=== PATIENT | female | born 1955 | race Caucasian/White ===

== ENCOUNTER 2017-03-28 07:29 | Day surgery (SDC) | payer BC ==
[2017-03-22 09:09] LABS: BASOPHILS 1.1 %; BASOPHILS ABSOLUTE 0.07 10/3/uL (0.0-0.16); EOSINOPHILS 5.8 %; EOSINOPHILS ABSOLUTE 0.38 10/3/uL (0.0-0.53); IMMATURE GRANULOCYTES 0.2 %; IMMATURE GRANULOCYTES ABSOLUTE 0.01 10/3/uL (0.0-0.11); LYMPHOCYTES 42.2 %; LYMPHOCYTES ABSOLUTE 2.78 10/3/uL (0.67-4.30); MEAN CORPUS HGB CONC 32.9 g/dL (32.0-36.0); MEAN CORPUSCULAR HEMOGLOB 29.9 pg (26.0-34.0); MONOCYTES 11.9 %; MONOCYTES ABSOLUTE 0.78 10/3/uL (0.21-1.20); NEUTROPHILS 38.8 %; NEUTROPHILS ABSOLUTE 2.56 10/3/uL (2.02-8.40); PLATELET COUNT 333 10/3/uL (150-400); WHITE BLOOD CELLS 6.6 10/3/uL (4.5-10.5)
[2017-03-22 09:21] LABS: BUN (BLOOD UREA NITROGEN) 9 MG/DL (6-23); CALCIUM, SERUM 9.6 MG/DL (8.5-10.4); CO2 (CARBON DIOXIDE) 29 MMOL/L (24-34); CREATININE 0.62 MG/DL (0.55-1.02); GFR AFRICAN AMERICAN 114 ML/MIN (>=60); GFR NON AFRICAN AMERICAN 98 ML/MIN (>=60); HEMATOCRIT 41.3 % (36.0-48.0); HEMOGLOBIN 13.6 g/dL (12.0-16.0); POTASSIUM, SERUM 3.8 MMOL/L (3.5-5.3); RED CELL COUNT 4.55 10/6/uL (4.0-5.6)
[2017-03-22 09:22] LABS: CHLORIDE, SERUM 105 MMOL/L (96-112); GLUCOSE, SERUM 76 MG/DL (60-99); MANUAL DIFF NO %; MEAN CORPUSCULAR VOLUME 90.8 fL (80-100); RBC DISTRIBUTION WIDTH 12.9 % (12.0-16.0); SODIUM, SERUM 140 MMOL/L (135-148)
--- NOTE | ~2017-03-28 | OP ---
Record Of Operation [facility] [address] [place]. [address] NAME: YARELI RAO : 57 STATUS : [facility]#: [id number] AGE: 61 ADM/REG DATE : 03/28/17 MR#: [id number] REPORT SERV DATE: 03/28/17 DICTATED BY: BENIGNO SUAREZ DATE: 03/28/17 REPORT STATUS : Draft TRANSCRIBED BY: LIVIA DATE: 03/28/17 DATE OF PROCEDURE: 03/28/2017 SERVICE: Otolaryngology. PREOPERATIVE DIAGNOSES: 1. Deviated nasal septum. 2. Bilateral chronic frontal sinusitis. 3. Bilateral chronic maxillary sinusitis. POSTOPERATIVE DIAGNOSES: 1. Deviated nasal septum. 2. Bilateral chronic frontal sinusitis. 3. Bilateral chronic maxillary sinusitis. PROCEDURES: 1. Bilateral endoscopic frontal sinusotomy. 2. Bilateral endoscopic maxillary sinusotomy. 3. Septoplasty. ANESTHESIA: General endotracheal anesthesia. COMPLICATIONS: None. SPECIMENS: None. FINDINGS: The patient had a moderate deviation of the nasal septum anteriorly to the right, had narrowed frontal sinus outflow tracts bilaterally with inflammation and narrowed bilateral maxillary sinus outflow tracts. STATEMENT OF MEDICAL NECESSITY: This is a 61-year-old female, referred to me for nasal airway obstruction and recurrent facial headaches. CT scan confirmed evidence of chronic sinusitis. Given her findings and presentation, I recommend the above surgery. STATEMENT OF OPERATION: The patient was brought to the operating room in supine position, transferred over to the operating room table. After all pressure points were padded and general endotracheal anesthesia was established, her nose was prepared with 4% cocaine- soaked pledgets. She was then draped out for a septoplasty and sinus surgery. 1% lidocaine with epinephrine was injected in the septal flaps bilaterally. A Walker incision was made on the left-hand side, mucoperichondrial flap was elevated, and the deviated portion of the cartilaginous septum was removed with a D knife and Emmanuel elevator. Once this was completed, the Rains incision was closed with interrupted 4-0 chromic sutures. Then, using a 0-degree endoscope, the right side of the nose was cannulated. The middle turbinate was gently medialized with a Baker elevator. 1% lidocaine with epinephrine was injected in the lateral nasal wall at the root of the middle turbinate and the face of the middle turbinate. Then, using the Acclarent balloon system, the frontal sinus was cannulated. It Record Of Operation [facility] [address] [place]. [address] NAME: YARELI RAO : 57 STATUS : [facility] PAT#: [id number] AGE: 61 ADM/REG DATE : 03/28/17 MR#: [id number] REPORT SERV DATE: 03/28/17 DICTATED BY: BENIGNO SUAREZ DATE: 03/28/17 REPORT STATUS : Draft TRANSCRIBED BY: LIVIA DATE: 03/28/17 was confirmed appropriate cannulation by transillumination and focal light transillumination. Three separate inflations were performed to 12 atmospheres for three seconds each and removed. A 45-degree scope was used to confirm wide open outflow tract. Next, this process repeated for the right maxillary sinus. Again appropriate cannulation was verified with transillumination. Two separate inflations to 12 atmospheres were performed. This process was repeated for the left hand side. Again the left frontal sinus was evaluated with a 45-degree scope. The lighted wire was cannulated into the frontal sinus and confirmed with transillumination. Three separate inflations to 12 atmospheres for three seconds were performed, and the scope was used to confirm wide open frontal sinus outflow tract. For the maxillary sinus, the sinus was cannulated with a lighted wire in the same fashion, inflated twice to 12 atmospheres. This concluded the case. Porter splints coated in bacitracin were inserted in each side and secured to the anterior septum. The patient was then turned over to Anesthesia, where she awoke, was extubated, and transferred to the PACU in stable condition. PS/MODL Benigno Suarez MD / [id number] CC: MD Juana Gutierrez M.D.
[~2017-03-28 07:29] MED LIST: AMB10 PO; ASAB PO; COZAAR100 MG PO; DYMISTA NASAL S23 GM NAS; MULTIPLE VIT PO; PRAVACHOL40 MG PO; PROTONIX PO; SINGULAIR1 PO; VITAMIN D1000 UNI1 PO
== END 2017-03-28 13:45 | disposition home or self-care (01) ==
LOC: SDC 07:29
PROVIDERS: Otolaryngology
PROC: 09BS4ZZ Excision of Right Frontal Sinus, Percutaneous Endoscopic Approach (ICD-10-PCS; 2017-03-28)
PROC: 09QR4ZZ Repair Left Maxillary Sinus, Percutaneous Endoscopic Approach (ICD-10-PCS; 2017-03-28)
PROC: 09QQ4ZZ Repair Right Maxillary Sinus, Percutaneous Endoscopic Approach (ICD-10-PCS; 2017-03-28)
PROC: 09SM4ZZ Reposition Nasal Septum, Percutaneous Endoscopic Approach (ICD-10-PCS; principal; 2017-03-28 08:45)
PROC: 09BT4ZZ Excision of Left Frontal Sinus, Percutaneous Endoscopic Approach (ICD-10-PCS; 2017-03-28 08:45)
DX: J34.2 Deviated nasal septum (principal); J32.8 Other chronic sinusitis; I10 Essential (primary) hypertension; K21.9 Gastro-esophageal reflux disease without esophagitis; E78.00 Pure hypercholesterolemia, unspecified; Z88.0 Allergy status to penicillin
CPT/HCPCS: 80048; 85025; 88300; 93005; A9270-GY; C1725; C1726; J0690; J2250; J2405; J2710; J3010